=== PATIENT | female | born 1955 | race Caucasian/White ===

== ENCOUNTER 2020-08-06 17:30 | Emergency (ER) | payer BC, SELFPAY ==
[2020-08-06 18:32] VITALS: BP 158/86; PULSE 88; RESP 18; TEMP 36.1; O2SAT 100
--- NOTE | 2020-08-06 18:36 | ECG_ITS ---
Measurements Intervals [place] Rate: 78 P: 75 MT: 168 QRS: 41 QRSD: 94 T: 67 QT: 363 QTc: 415 Interpretive Statements SINUS RHYTHM NORMAL ECG Electronically Signed On 08-06-2020 19:35:11 CDT by Jean Paul Salinas D.O.
[2020-08-06 18:51] LABS: Basophils Percent Auto 0.1 % (0.2-1.2); Hematocrit 39.3 % (37.0-47.0); Hemoglobin 13.5 g/dL (12.0-15.0); Immature Granulocyte Absolute 0.03 K/mm3 (0.00-0.031); Immature Granulocyte Percent A 0.4 % (0-0.5); Lymphocytes Percent Auto 3.5 % (18.3-44.2); Mean Corpuscular HGB Conc 34.4 g/dl (32-36); Mean Corpuscular Hemoglobin 31.8 pg (26-34); Mean Corpuscular Volume 92.7 fl (80-100); Mean Platelet Volume 9.1 fl (7.4-10.4); Monocytes Percent Auto 0.5 % (2.6-8.5); Neutrophils Absolute Auto 8.1 K/mm3 (1.3-6.7); Neutrophils Percent Auto 95.5 % (45.5-73.1); Platelet Count Result 284 k/mm3 (150-375); Red Blood Count 4.24 M/mm3 (4.2-5.4); Red Cell Distribution Width 12.6 % (11.5-14.5); White Blood Count 8.5 K/mm3 (4.5-10.0)
[2020-08-06 19:10] LABS: INR 0.9; Prothrombin Time 12.3 Seconds (11.1-14.7)
[2020-08-06 19:11] LABS: Partial Thromboplastin Time 25.9 SECONDS (22.3-36.8)
[2020-08-06 19:12] LABS: Anion Gap 10 mmol/L (8-16); Blood Urea Nitrogen 23 mg/dL (7-17); Calcium 9.7 mg/dL (8.4-10.2); Carbon Dioxide 25 mmol/L (22-30); Chloride 105 mmol/L (98-107); Estimated CRCL calculation 70 ml/min; Estimated Glomerular Filt Rate > 60; Glucose 192 mg/dL (65-105); Potassium 4.3 mmol/L (3.4-5.0); Sodium 140 mmol/L (137-145)
[2020-08-06 19:18] LABS: Troponin I < 0.012 ng/mL (0.000-0.034)
--- NOTE | 2020-08-06 20:59 | ED.GENADULT ---
HPI - General Adult General Chief complaint: Chest Pain Stated complaint: Low back pain/Low abd cramps Time Seen by Provider: 08/06/20 20:58 Source: patient Mode of arrival: ambulatory Limitations: no limitations History of Present Illness HPI narrative: Here for evaluation of chest pain has been ongoing for several months, followed by pulmonology, cardiology, GI specialist. This episode started about 4 days ago and is midsternal. She has had a cardiac cath in the last 18 months that was negative, she has had an upper GI that was negative, and she takes albuterol periodically for shortness of breath. She does take naproxen and Tylenol once a day as recommended by her previous hospitalization. She was seen today in urgent care and diagnosed with costochondritis, given Solu-Medrol injection and ordered on Symbicort and prednisone. She was also recently on a prescription anti-inflammatory for shoulder pain. The pain does not radiate. She also complains of chronic shortness of breath. CXR at urgent care was normal and she has had a normal PFT> Onset (ago): day(s) Radiation: non-radiation Severity: moderate Quality: burning Pain Consistency: constant Relieving factors: none Treatments prior to arrival: NSAID Related Data Allergies Allergy/AdvReac Type Severity Reaction Status Date / Time No Known Allergies Allergy Mild Unverified 11/08/09 23:56 Review of Systems Review of Systems: All systems reviewed & are unremarkable except as noted in HPI and below [facility] Social History Social History (Updated 08/06/20 @ 23:18 by Patricia Melgar PA-C) Smoking status: Never smoker Alcohol intake: current Alcohol use details: occasional Substance use: never Living arrangements: alone Occupation/Education: occupation Gender identity (if verbalized by the patient): Female Exam Const: General: no acute distress and alert Orientation/consciousness: patient oriented x3 HENMT: Head: normal to inspection Eyes: Pupils: Equal, round and reactive pupils present Chest: Chest palpation & inspection: normal inspection of the chest and tenderness costochondral junction (to firm palpation) Resp: Effort & Inspection: normal respiratory effort Auscultation: clear to auscultation bilaterally Cardio: Rate: regular rate Rhythm: regular rhythm GI: GI Palp: Yes Soft to palpation Skin: General skin exam: normal color Rashes: no rashes Extrem: General: normal to inspection Psych: Mental Status: mental status grossly normal Course Course Emergency Course: Discussed multiple possiblilities for pain. Will try GI cocktail . Pain is resolved after cocktail. Recommend mylanta at bedtime. Vital Signs Vital signs: Vital Signs Temperature 36.1 C L 08/06/20 18:32 Pulse Rate 88 08/06/20 18:32 Respiratory Rate 18 08/06/20 18:32 Blood Pressure 158/86 H 08/06/20 18:32 Pulse Oximetry 100 08/06/20 18:32 Temperature 36.1 C L 08/06/20 18:32 Pulse Rate 88 08/06/20 18:32 Respiratory Rate 18 08/06/20 18:32 Blood Pressure 158/86 H 08/06/20 18:32 Pulse Oximetry 100 08/06/20 18:32 Medical Decision Making Vital Signs Vital Signs: Vital Signs Temperature 36.1 C L 08/06/20 18:32 Pulse Rate 88 08/06/20 18:32 Respiratory Rate 18 08/06/20 18:32 Blood Pressure 158/86 H 08/06/20 18:32 Pulse Oximetry 100 08/06/20 18:32 Temperature 36.1 C L 08/06/20 18:32 Pulse Rate 88 08/06/20 18:32 Respiratory Rate 18 08/06/20 18:32 Blood Pressure 158/86 H 08/06/20 18:32 Pulse Oximetry 100 08/06/20 18:32 Lab Data Lab results reviewed: Yes I reviewed the patient's lab results. Result diagrams: 08/06/20 18:42 08/06/20 18:42 Labs: Lab Results 08/06/20 08/06/20 08/06/20 Range/Units 18:42 18:42 18:42 WBC 8.5 (4.5-10.0) K/mm3 RBC 4.24 (4.2-5.4) M/mm3 Hgb 13.5 (12.0-15.0) g/dL Hct 39.3 (37.0-47.0) % MCV 92.7 (80-100) fl MCH 31
[2020-08-06 21:04] VITALS: PULSE 78; O2SAT 97
[2020-08-06] MEDS: SODIUM CHLORIDE 0.9% IV 1,000 ML 999 ML IV CONT (21:44)
[2020-08-06 22:05] LABS: Troponin I < 0.012 ng/mL (0.000-0.034)
[2020-08-06 22:15] VITALS: BP 163/85; PULSE 72; RESP 16; O2SAT 96
[2020-08-06] MEDS: BELLADONNA ALK/PHENOB ELIX 10 ML, MAG HYDROX/ALUMINUM HYD/SIMETH 30 ML, LIDOCAINE HCL 2... PO (22:27)
[2020-08-06 23:42] VITALS: BP 139/78; PULSE 77; RESP 18; TEMP 37.1; O2SAT 97
== END 2020-08-06 23:43 | disposition home or self-care (01) ==
PROVIDERS: Emergency Medicine; Emergency Provider Emergency Medicine; PCP Internal Medicine
DX: K21.9 Gastro-esophageal reflux disease without esophagitis (principal); R07.2 Precordial pain
CPT/HCPCS: 36415; 80048; 84484; 85025; 85610; 85730; 93005; 96360; 99284; A9270; J7030

== ENCOUNTER 2021-06-13 11:25 | Emergency (ER) | payer BC, SELFPAY ==
--- NOTE | ~2021-06-13 | XR_ITS ---
EXAMINATION: XR chest 2V DATE: 06/13/2021 12:19 INDICATION: Tachycardia. Lightheadedness. TECHNIQUE: PA and lateral views of the chest were obtained. COMPARISON: Chest radiograph dated 10/04/2010 FINDINGS: Mild biapical pleural-parenchymal scarring. Small calcified nodule at the left lung base consistent w ith old granulomatous disease. Mild linear discoid atelectasis at the left costophrenic angle. No oth er airspace opacities, pulmonary edema, pleural effusion or pneumothorax. The cardiomediastinal silho uette is normal. Moderate thoracic spondylosis. IMPRESSION: 1. No acute cardiopulmonary disease. Reviewed, dictated and finalized at location A.
--- NOTE | ~2021-06-13 | CT_ITS ---
EXAMINATION: CTA chest PE protocol DATE: 06/13/2021 13:10 INDICATION: Shortness of breath. Elevated d-dimer. TECHNIQUE: Computed tomography (CT) pulmonary angiogram of the chest was performed with 100 mL Omnipa que-350 intravenous contrast. Additional 3D reconstructions utilizing coronal maximum intensity proje ction (MIP) were performed. Automated exposure control and iterative reconstruction technique were em ployed. The dose-length product was 304.01 mGy-cm. COMPARISON: None FINDINGS: Excellent contrast opacification of the pulmonary arteries. There is mild streak artifact from dense contrast in the superior vena cava and right atrium. Minimal respiratory motion which does not signif icantly limit evaluation. There appears be a single central pulmonary arterial filling defect suspici ous for pulmonary embolism within the superior segmental lingular pulmonary artery. No other pulmonar y emboli identified. Minimal atelectasis at the posterior sulci of the bilateral lower lobes. No pneu monia, pulmonary infarcts, pulmonary edema, pleural effusion or pneumothorax. Heart size is normal. N o leftward bowing of the ventricular septum to suggest right heart strain. Thoracic aorta and central pulmonary arteries are normal in caliber. No aortic dissection. No pathologically enlarged thoracic lymphadenopathy. Visualized upper abdomen is unremarkable. Moderate thoracic spondylosis. IMPRESSION: 1. Single pulmonary embolism within the superior segmental pulmonary artery of the lingula. Reviewed, dictated and finalized at location A.
[2021-06-13 11:27] VITALS: BP 149/82; PULSE 85; RESP 18; TEMP 36.4; O2SAT 97
--- NOTE | 2021-06-13 11:29 | ECG_ITS ---
Measurements Intervals [place] Rate: 85 P: 66 [place]: 155 QRS: 32 QRSD: 91 T: 45 QT: 355 QTc: 423 Interpretive Statements SINUS RHYTHM NORMAL ECG Electronically Signed On 06-13-2021 12:18:01 CDT by Jean Paul Salinas D.O.
[2021-06-13 11:45] VITALS: PULSE 80
[2021-06-13 11:51] LABS: Basophils Absolute Auto 0.1 K/mm3 (0.0-0.1); Basophils Percent Auto 0.6 % (0.2-1.2); Eosinophils Absolute Auto 0.2 K/mm3 (0-0.3); Eosinophils Percent Auto 2.3 % (0-4.4); Hematocrit 43.7 % (37.0-47.0); Hemoglobin 14.8 g/dL (12.0-15.0); Immature Granulocyte Absolute 0.02 K/mm3 (0.00-0.031); Immature Granulocyte Percent A 0.2 % (0-0.5); Lymphocytes Absolute Auto 1.33 K/mm3 (0.9-3.2); Lymphocytes Percent Auto 15.2 % (18.3-44.2); Mean Corpuscular HGB Conc 33.9 g/dl (32-36); Mean Corpuscular Volume 91.6 fl (80-100); Mean Platelet Volume 9.1 fl (7.4-10.4); Monocytes Absolute Auto 0.6 K/mm3 (0.1-0.6); Monocytes Percent Auto 7.3 % (2.6-8.5); Neutrophils Absolute Auto 6.5 K/mm3 (1.3-6.7); Neutrophils Percent Auto 74.4 % (45.5-73.1); Platelet Count Result 302 k/mm3 (150-375); Red Blood Count 4.77 M/mm3 (4.2-5.4); Red Cell Distribution Width 11.9 % (11.5-14.5); White Blood Count 8.7 K/mm3 (4.5-10.0)
[2021-06-13 12:00] LABS: Anion Gap 6 mmol/L (8-16); Blood Urea Nitrogen 20 mg/dL (7-17); Calcium 9.9 mg/dL (8.4-10.2); Carbon Dioxide 28 mmol/L (22-30); Chloride 104 mmol/L (98-107); Estimated CRCL calculation 55 ml/min; Estimated Glomerular Filt Rate > 60; Glucose 103 mg/dL (65-110); Potassium 4.2 mmol/L (3.4-5.0); Sodium 138 mmol/L (137-145)
[2021-06-13 12:40] VITALS: BP 144/84; PULSE 81
[2021-06-13 12:41] VITALS: BP 131/84; PULSE 79
--- NOTE | 2021-06-13 12:42 | ED.DIZZY ---
HPI - Dizziness General Chief Complaint: Syncope Stated Complaint: feel like passing out Time Seen by Provider: 06/13/21 12:02 Source: patient and RN notes reviewed Mode of arrival: ambulatory Limitations: no limitations History of Present Illness HPI Narrative: This is a 65 year old female with history of asthma who presents for evaluation of lightheadedness. She reports intermittent episodes of lightheadedness for 2 weeks. She reports episodes in which she will become lightheaded and diaphoretic. These episodes last seconds. She denies associated chest pain, sob, nausea, vomiting, headache, palpitations. She states she was standing in [place] when she felt lightheaded but it passed after a few seconds while she was standing up. She also notes she was feeding her animals when she became diaphoretic. She checked her vitals when she returned to house and she noticed her heart rate was in 120-130s. She also reports bilateral shoulder pain that she has had for while due to her rotator cuff injuries. 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 MD elicited complaint: lightheadedness Onset (ago): week(s) (2) Related Data Allergies Allergy/AdvReac Type Severity Reaction Status Date / Time No Known Allergies Allergy Mild Verified 06/13/21 11:46 Review of Systems Review of Systems: All systems reviewed & are unremarkable except as noted in HPI and below Constitutional: Constitutional: Denies chills, Reports fatigue and Denies fever(s) ENT: Reports dizziness and Denies sore throat Cardiovascular: Cardiovascular: Denies chest pain Respiratory: Respiratory: Denies chest congestion, Reports cough, Reports dyspnea (chronic) and Denies wheezing Gastrointestinal: Gastrointestinal: Denies abdominal pain, Denies diarrhea, Denies nausea and Denies vomiting Musculoskeletal: Musculoskeletal: Reports arthralgias (shoulder) Neurologic: Denies headache(s), Denies focal weakness and Denies numbness [facility] Past Medical History Medical History (Updated 06/14/21 @ 00:00 by Aneta Riley) Asthma Surgical History Surgical History (Updated 06/13/21 @ 12:44 by Janeen Woods MD) History of breast biopsy Social History Social History (Updated 08/06/20 @ 23:18 by Patricia Melgar PA-C) Smoking status: Never smoker Alcohol intake: current Alcohol use details: occasional Substance use: never Gender identity (if verbalized by the patient): Female Exam Const: General: no acute distress and alert Orientation/consciousness: patient oriented x3 HENMT: Head: normocephalic and atraumatic Face and sinus: face symmetric Eyes: Pupils: Equal, round and reactive pupils present EOM: EOMs intact bilaterally Resp: Effort & Inspection: normal respiratory effort and no retractions Auscultation: clear to auscultation bilaterally Cardio: Rate: regular rate Rhythm: regular rhythm Heart sounds: no murmurs GI: GI Palp: Yes Soft to palpation, No Tenderness to palpation present (GI) and No Guarding due to palpation present (GI) Auscultation: normal bowel sounds Skin: General skin exam: normal color Rashes: no rashes Neuro: General: patient oriented x3, moves all extremities and CN's II-XI intact bilaterally Gait exam (Neuro): Normal gait present Extrem: General: no pedal edema Psych: Mental Status: mental status grossly normal Affect: normal affect Course Reevaluation(s) Reevaluation #1: I spoke with MD general operations agent for Dr. Salgado. I discussed patient case with small PE with normal vitals . Patient is very low risk on PESI. She is agreeable to outpatient treatment. Follow up with Dr. Salgado this week. I discussed with patient CT finding and my plan for discharge. She denies any questions or concerns. Date: 06/13/21 Time: 14:35 Vital Signs Vital signs: Vital Signs Temperature 97.6 F 06/13/21 11:27 Pulse Rate 85 06/13/21 11:27 Respiratory Rate 18 06/13/21 11:27 Blood Pressure 14
[2021-06-13 12:44] VITALS: BP 137/81; PULSE 94
[2021-06-13] MEDS: SODIUM CHLORIDE 0.9% IV 1,000 ML 999 ML IV CONT (12:46)
[2021-06-13 12:47] LABS: INR 0.9; Prothrombin Time 12.1 Seconds (11.1-14.7)
[2021-06-13 12:48] LABS: Alanine Aminotransferase 48 U/L (4-35); Albumin Level 4.5 g/dL (3.5-5.1); Alkaline Phosphatase 94 U/L (38-126); Aspartate Amino Transferase 47 U/L (14-36); Bilirubin,Total 0.7 mg/dL (0.2-1.3); Magnesium 1.8 mg/dL (1.6-2.3)
[2021-06-13 12:48] LABS: Add Urine Microscopic? YES; Appearance Urine Clear (Clear); Bilirubin Urine Negative (Negative); Blood Urine 1+ (Negative); Color Urine Yellow (Yellow); Glucose Urine UA Negative (Negative); Ketones Urine Negative (Negative); Leukocyte Esterase Ur Negative LEU/UL (Negative); Mucus Urine Rare /lpf; Nitrate Urine Negative (Negative); Protein Urine Negative (Negative); Specific Grav Ur 1.024 (1.001-1.035); Squamous Epithelial Cell Urine Occasional /hpf (Few); Urobilinogen Urine Negative mg/dL (<2.0); WBC Urine 0-3 /hpf
[2021-06-13 12:50] LABS: D Dimer 0.91 ug/mL (<0.48)
[2021-06-13 13:00] LABS: Troponin I < 0.012 ng/mL (0.000-0.034)
[2021-06-13] MEDS: RIVAROXABAN 15 MG TABLET PO (14:20)
[2021-06-13 15:02] VITALS: BP 154/87; PULSE 78; RESP 17; O2SAT 99
== END 2021-06-13 15:05 | disposition home or self-care (01) ==
PROVIDERS: Emergency Medicine; Emergency Provider General Practice; PCP Internal Medicine
DX: I26.99 Other pulmonary embolism without acute cor pulmonale (principal); J45.909 Unspecified asthma, uncomplicated
CPT/HCPCS: 36415; 71046; 71275; 80048; 80076; 81001; 83735; 84484; 85025; 85380; 85610; 85730; 93005; 96360; 99284; A9270; J7030; Q9967

== ENCOUNTER 2021-06-15 18:41 | Emergency (ER) | payer BC, SELFPAY ==
--- NOTE | ~2021-06-15 | CT_ITS ---
EXAMINATION: CTA chest PE protocol DATE: 06/16/2021 02:16 INDICATION: Chest pain. TECHNIQUE: Computed tomography angiography (CTA) of the chest was performed with 100 mL Omnipaque-350 intravenous contrast timed to evaluate the pulmonary arteries. Coronal maximum intensity projection 3D-reconstructions were created by the technologist. Automated exposure control and iterative reconst ruction technique were employed. The dose-length product was 300.33 mGy-cm. COMPARISON: Chest CT 06/13/21 FINDINGS: There is mild scarring at the lung apices. There is mild scarring in paraspinal right lower lobe. No pleural effusion. The heart size is normal. No pericardial effusion. There is no pulmonary embolus. There are old healed right rib fractures. There is moderate thoracic spondylosis. There is m ild chronic height loss of multiple vertebral bodies. IMPRESSION: 1. No pulmonary embolus. Reviewed, dictated and finalized at location A. IMPRESSION: 1. No pulmonary embolus.
--- NOTE | ~2021-06-15 | XR_ITS ---
EXAMINATION: XR chest 2V 06/15/2021 19:07 INDICATION: Generalized chest pain PROCEDURE: PA and lateral views of the chest COMPARISON: Comparison to multiple prior studies sequentially, with oldest reviewed study dated 11/06. FINDINGS: The lungs are clear. The lungs are hyperinflated which is consistent with, but not diagnost ic of chronic obstructive pulmonary disease. The cardiomediastinal silhouette is within normal limits . There are no pleural effusions. There is no pneumothorax suspected. IMPRESSION: 1: NO ACUTE CARDIOPULMONARY DISEASE. Reviewed, dictated and finalized at location A.
[2021-06-15 18:44] VITALS: BP 141/91; PULSE 107; RESP 14; TEMP 36.6; O2SAT 98
--- NOTE | 2021-06-15 18:44 | ECG_ITS ---
Measurements Intervals [place] Rate: 106 P: 68 [place]: 156 QRS: 36 QRSD: 92 T: 61 QT: 333 QTc: 443 Interpretive Statements SINUS TACHYCARDIA POSSIBLE LEFT ATRIAL ENLARGEMENT DELAYED PRECORDIAL R/S TRANSITION BORDERLINE ST-T WAVE ABNORMALITY- HIGH LATERAL LEADS BASELINE ARTIFACT- III, V3 ABNORMAL ECG Electronically Signed On 06-15-2021 20:39:03 CDT by Jean Paul Salinas D.O.
[2021-06-15 19:20] LABS: Anion Gap 10 mmol/L (8-16); Blood Urea Nitrogen 17 mg/dL (7-17); Carbon Dioxide 23 mmol/L (22-30); Chloride 108 mmol/L (98-107); Estimated CRCL calculation 55 ml/min; Estimated Glomerular Filt Rate > 60; Glucose 160 mg/dL (65-110); Potassium 3.7 mmol/L (3.4-5.0); Sodium 141 mmol/L (137-145)
[2021-06-15 19:25] LABS: Basophils Percent Auto 0.4 % (0.2-1.2); Eosinophils Absolute Auto 0.3 K/mm3 (0-0.3); Eosinophils Percent Auto 4.2 % (0-4.4); Hematocrit 42.3 % (37.0-47.0); Hemoglobin 14.5 g/dL (12.0-15.0); Immature Granulocyte Absolute 0.02 K/mm3 (0.00-0.031); Immature Granulocyte Percent A 0.3 % (0-0.5); Lymphocytes Absolute Auto 1.69 K/mm3 (0.9-3.2); Lymphocytes Percent Auto 22.4 % (18.3-44.2); Mean Corpuscular HGB Conc 34.3 g/dl (32-36); Mean Corpuscular Hemoglobin 31.5 pg (26-34); Mean Platelet Volume 9.3 fl (7.4-10.4); Monocytes Absolute Auto 0.7 K/mm3 (0.1-0.6); Neutrophils Absolute Auto 4.8 K/mm3 (1.3-6.7); Neutrophils Percent Auto 63.7 % (45.5-73.1); Platelet Count Result 316 k/mm3 (150-375); Red Cell Distribution Width 11.9 % (11.5-14.5); White Blood Count 7.6 K/mm3 (4.5-10.0)
[2021-06-15 19:29] LABS: INR 2.6; Prothrombin Time 27.2 Seconds (11.1-14.7)
[2021-06-15 19:30] LABS: Partial Thromboplastin Time 47.2 SECONDS (22.3-36.8)
[2021-06-15 19:32] LABS: Troponin I < 0.012 ng/mL (0.000-0.034)
[2021-06-15 20:54] VITALS: BP 145/78; PULSE 78; TEMP 36.5; O2SAT 96
[2021-06-15 23:20] LABS: Troponin I < 0.012 ng/mL (0.000-0.034)
[2021-06-16] VITALS (9 sets, daily range): BP systolic 132–154; BP diastolic 75–94; PULSE 75–89; RESP 14–16; TEMP 36.4; O2SAT 96–100
[2021-06-16 01:29] LABS: Troponin I < 0.012 ng/mL (0.000-0.034)
--- NOTE | 2021-06-16 01:35 | ED.GENADULT ---
HPI - General Adult General Chief complaint: Shortness of Breath/Dyspnea <Ramandeep Hernández MD - Last Filed: 06/17/21 11:27> Stated complaint: sob, chest pain, recent pe <Ramandeep Hernández MD - Last Filed: 06/17/21 11:27> Time Seen by Provider: 06/15/21 23:58 <Ramandeep Hernández MD - Last Filed: 06/17/21 11:27> Source: patient <Ramandeep Hernández MD - Last Filed: 06/17/21 11:27> History of Present Illness HPI narrative: Patient is 65 y/o female complaining of midsternal chest pain starting 7-8 hours ago. She describes her pain as pressure and rates it as 7/10. There is no pain radiation. There is no alleviating or exacerbating factor. She has some intermittent SOB. She has no cough or fever. Of note, she was recently diagnosed with PE and started on Xarelto. <Ramandeep Hernández MD - Last Filed: 06/17/21 11:27> Related Data Allergies/adverse reactions: Allergies Allergy/AdvReac Type Severity Reaction Status Date / Time No Known Allergies Allergy Mild Verified 06/16/21 00:14 <Ramandeep Hernández MD - Last Filed: 06/17/21 11:27> Review of Systems Constitutional: Constitutional: Denies chills, Denies fever(s), Denies headache(s) and Denies weakness <Ramandeep Hernández MD - Last Filed: 06/17/21 11:27> Eyes: Eyes: Denies blurry vision <Ramandeep Hernández MD - Last Filed: 06/17/21 11:27> ENT: Denies headache(s) and Denies neck pain <Ramandeep Hernández MD - Last Filed: 06/17/21 11:27> Cardiovascular: Cardiovascular: Reports chest pain and Reports dyspnea <Ramandeep Hernández MD - Last Filed: 06/17/21 11:27> Respiratory: Respiratory: Denies cough and Reports dyspnea <Ramandeep Hernández MD - Last Filed: 06/17/21 11:27> Gastrointestinal: Gastrointestinal: Denies abdominal pain, Denies diarrhea, Denies nausea and Denies vomiting <Ramandeep Hernández MD - Last Filed: 06/17/21 11:27> Genitourinary: Genitourinary: Denies hematuria and Denies dysuria <Ramandeep Hernández MD - Last Filed: 06/17/21 11:27> Musculoskeletal: Musculoskeletal: Denies back pain and Denies neck pain <Ramandeep Hernández MD - Last Filed: 06/17/21 11:27> Neurologic: Denies headache(s) and Denies weakness <Ramandeep Hernández MD - Last Filed: 06/17/21 11:27> COUNT INCLUDES THE [facility] Past Medical History Medical History: Medical History Asthma <Ramandeep Henrández MD - Last Filed: 06/17/21 11:27> Surgical History Surgical History: Surgical History History of breast biopsy <Ramandeep Hernández MD - Last Filed: 06/17/21 11:27> Social History Social History: Social History Smoking status: Never smoker Alcohol intake: current Alcohol use details: occasional Substance use: never Gender identity (if verbalized by the patient): Female <Ramandeep Hernández MD - Last Filed: 06/17/21 11:27> Exam Const: General: no acute distress and well developed <Ramandeep Hernández MD - Last Filed: 06/17/21 11:27> Orientation/consciousness: oriented to person, oriented to place, oriented to time and patient oriented x3 <Ramandeep Hernández MD - Last Filed: 06/17/21 11:27> HENMT: Head: normocephalic <Ramandeep Hernández MD - Last Filed: 06/17/21 11:27> Ears: external ears normal <Ramandeep Hernández MD - Last Filed: 06/17/21 11:27> General nose exam: Normal external nose present <Ramandeep Hernández MD - Last Filed: 06/17/21 11:27> Eyes: General: appearance normal, both eyes and all related structures <Ramandeep Hernández MD - Last Filed: 06/17/21 11:27> Conjunctivae: conjunctivae normal <Ramandeep Hernández MD - Last Filed: 06/17/21 11:27> Neck: Neck: normal visual inspection and full ROM <Ramandeep Hernández MD - Last Filed: 06/17/21 11:27> Chest: Chest palpation & inspection: normal inspection of the chest and no tenderness <Ramandeep Hernández MD - Last Filed: 06/17/21 11:27> Resp: Effort & Inspection: normal respiratory effort <Ramandeep Hernández MD - Last Filed:
== END 2021-06-16 05:16 | disposition home or self-care (01) ==
PROVIDERS: Emergency Medicine; Emergency Provider Emergency Medicine; PCP Internal Medicine
DX: R07.9 Chest pain, unspecified (principal); R06.02 Shortness of breath; R00.0 Tachycardia, unspecified; J45.909 Unspecified asthma, uncomplicated
CPT/HCPCS: 36415; 71046; 71275; 80048; 84484; 85025; 85610; 85730; 93005; 99284; Q9967

== ENCOUNTER 2022-03-16 11:02 | Outpatient (CLI) | payer BC, SELFPAY ==
[2022-03-16 11:29] LABS: Alanine Aminotransferase 28 U/L (6-35); Aspartate Amino Transferase 30 U/L (14-36)
== END 2022-03-16 11:03 | disposition home or self-care (01) ==
LOC: ANHLAB 11:05
PROVIDERS: PCP Internal Medicine; Visit Provider Podiatrist Foot & Ankle Surgery
DX: B35.1 Tinea unguium (principal)
CPT/HCPCS: 36415; 84450; 84460

== ENCOUNTER 2022-08-02 11:29 | Outpatient (CLI) | payer BC, SELFPAY ==
[2022-08-02 11:51] LABS: Alanine Aminotransferase 28 U/L (6-35); Aspartate Amino Transferase 33 U/L (14-36)
== END 2022-08-02 11:30 | disposition home or self-care (01) ==
LOC: ANHLAB 11:31
PROVIDERS: PCP Internal Medicine; Visit Provider Podiatrist Foot & Ankle Surgery
DX: B35.1 Tinea unguium (principal)
CPT/HCPCS: 36415; 84450; 84460

== ENCOUNTER 2022-12-03 08:27 | Emergency (ER) | payer BC, SELFPAY ==
--- NOTE | 2022-12-03 08:31 | ED.URI ---
HPI - URI/Sore Throat General Chief Complaint: Upper Respiratory Infection Stated Complaint: COUGH/NAUSEA/DRY & SCRATCHY THROAT Time Seen by Provider: 12/03/22 08:32 Source: patient, RN notes reviewed and old records reviewed Mode of arrival: ambulatory Limitations: no limitations History of Present Illness HPI Narrative: 67-year-old female who presents to [facility] with complaints of chest tightness with cough, frequent nonproductive cough,wheezing, scratchy throat and also some hoarseness and some nausea since . Patient reports history of asthma and has been using her inhaler and also taking Mucinex. Patient states that she has has increased wheezing especially at night denies any acute dyspnea, reports that she has not been sleeping well and feels terrible. Patient states that she is suppose to go to birthday [place] party today and she is concerned she is contagious, wants COVID test, reports she has been COVID vaccinated, had flu shot and also pneumonia shot this year. Patient denies any known fevers. MD elicited complaint: cough, sore throat, rhinorrhea, nasal congestion and other (wheezing) Pertinent past history: asthma Onset (ago): day(s) (2) Able to tolerate fluids by mouth: Yes Associated symptoms: voice changes, rhinorrhea, nasal congestion, sore throat, cough and nausea Treatments prior to arrival: other (Mucinex and used inhaler) Related Data Home Medications Medication Instructions Recorded Confirmed diclofenac sodium 75 mg mg PO 12/03/22 tablet,delayed release fluticasone furoate 200 inhalation 12/03/22 mcg-vilanterol 25 mcg/dose inhalation powder omeprazole 40 mg capsule,delayed mg 12/03/22 release terbinafine HCl 250 mg tablet mg 12/03/22 Allergies Allergy/AdvReac Type Severity Reaction Status Date / Time No Known Allergies Allergy Mild Verified 12/03/22 08:37 Review of Systems Review of Systems: CONSTITUTIONAL: Denies malaise, chills, sweats, or fever. EYES: Denies visual changes, redness, or discharge. ENT: Reports rhinorrhea, congestion, no sinus pain,no otalgia and sore throat. CARDIOVASCULAR: Reports chest tightness with cough,no palpitations, or edema. RESPIRATORY: Reports cough.? Denies acute dyspnea. GASTROINTESTINAL: Denies abdominal pain,states some nausea,no vomiting,or diarrhea SKIN: Denies rash or itching. MUSCULOSKELETAL: Denies myalgia. NEUROLOGIC: Denies headache. All systems reviewed & are unremarkable except as noted in HPI and below PMFSH Past Medical History Medical History (Updated 12/03/22 @ 09:19 by Nani Resendiz NP) Asthma GERD (gastroesophageal reflux disease) Surgical History Surgical History (Updated 12/03/22 @ 09:20 by Nani Resendiz NP) History of breast biopsy History of repair of rotator cuff bilateral Social History Social History Smoking status: Never smoker Alcohol intake: current Alcohol use details: occasional Substance use: never Living arrangements: alone Occupation/Education: occupation Gender identity (if verbalized by the patient): Female Comments At time of signature, agree with nursing past medical, surgical, social and family history. There is no relevant family history pertinent to the presenting complaint Exam Narrative: GENERAL: Well-appearing, well-nourished, and in no acute distress. HEAD: Normocephalic EYES: PERRLA, conjunctivae clear ENT: Nares clear, turbinates edematous and erythematous, clear discharge. Mucous membranes moist. TM pearly valenzuela with dull light reflex bilaterally; no tragal tenderness. Oropharynx erythematous without lesions. Tonsils not enlarged and without exudate, no drooling, no hoarseness, no trismus, uvula midline. NECK: Supple. No lymphadenopathy CHEST: Clear to auscultation, breath sounds equal. No wheezing, rhonchi, rales, or stridor. No respiratory distress, speaks in full sentences. No tachy
[2022-12-03 08:37] VITALS: BP 140/96; PULSE 95; RESP 16; TEMP 36.5; O2SAT 99
[2022-12-03 08:39] VITALS: BP 140/96; PULSE 95; RESP 16; TEMP 36.5; O2SAT 99
== END 2022-12-03 09:17 | disposition home or self-care (01) ==
PROVIDERS: Emergency Provider Registered Nurse; PCP Internal Medicine
DX: J06.9 Acute upper respiratory infection, unspecified (principal); Z20.822 Contact with and (suspected) exposure to COVID-19; K21.9 Gastro-esophageal reflux disease without esophagitis
CPT/HCPCS: 87426; 99213; C9803; G0463

== ENCOUNTER 2022-12-10 18:03 | Emergency (ER) | payer BC, SELFPAY ==
--- NOTE | ~2022-12-10 | XR_ITS ---
EXAMINATION: XR chest 2V DATE: 12/10/2022 18:30 INDICATION: Cough and chest pain TECHNIQUE: PA and lateral views of the chest are obtained. COMPARISON: 06/15/2021 FINDINGS: The lungs are free of acute opacities. No pleural effusion or pneumothorax. The cardiomedia stinal silhouette is normal. There is moderate thoracic spondylosis. Healed right-sided rib fractures are noted. IMPRESSION: 1. No acute cardiopulmonary abnormality. Reviewed, dictated and finalized at location F. [employer]ICAL EQUIPMENT TECHNICIAN
--- NOTE | 2022-12-10 18:06 | ED.URI ---
HPI - URI/Sore Throat General Chief Complaint: Upper Respiratory Infection Stated Complaint: COUGH/CHEST PRESSURE Time Seen by Provider: 12/10/22 18:14 Source: patient and RN notes reviewed Mode of arrival: ambulatory Limitations: no limitations History of Present Illness HPI Narrative: 67-year-old female presents concern for ongoing cough, chest congestion, chest pressure with coughing. She reports she was seen in this clinic about a week ago and was given the Z-Mark, steroids and Tessalon Perles. She reports she has seen her doctor since then and he had her continue on the medications. She reports she began to feel a bit better yesterday, she feels worse today and she feels generally ill, chills, achiness. She denies any nasal congestion, rhinorrhea, sore throat, fever. MD elicited complaint: cough Related Data Home Medications Medication Instructions Recorded Confirmed omeprazole 40 mg capsule,delayed 40 mg PO DAILY 12/03/22 12/10/22 release terbinafine HCl 250 mg tablet 250 mg PO DAILY 12/03/22 12/10/22 estradiol 0.01% (0.1 mg/gram) 1 g vaginal DIRECTED 12/10/22 12/10/22 vaginal cream fluticasone furoate 200 1 inh inhalation DAILY 12/10/22 12/10/22 mcg-vilanterol 25 mcg/dose inhalation powder lisinopril 5 mg tablet 5 mg PO DAILY 12/10/22 12/10/22 Allergies Allergy/AdvReac Type Severity Reaction Status Date / Time No Known Allergies Allergy Mild Verified 12/10/22 18:12 Review of Systems Review of Systems: CONSTITUTIONAL: Reports malaise, chills. Denies fever. EYES: Denies visual changes, redness, or discharge. ENT: Reports rhinorrhea, congestion, sinus pain, otalgia and sore throat. CARDIOVASCULAR: Denies chest pain, palpitations, or edema. RESPIRATORY: Reports dry cough, chest congestion, chest pressure. Denies dyspnea. GASTROINTESTINAL: Denies abdominal pain, nausea, vomiting, diarrhea SKIN: Denies rash or itching. MUSCULOSKELETAL: Reports myalgia. NEUROLOGIC: Denies headache. All systems reviewed & are unremarkable except as noted in HPI and below PMFSH Past Medical History Medical History (Updated 12/10/22 @ 19:07 by Richelle Hughes NP) Asthma GERD (gastroesophageal reflux disease) Surgical History Surgical History (Updated 12/03/22 @ 09:20 by Nani Resendiz NP) History of breast biopsy History of repair of rotator cuff bilateral Social History Social History Smoking status: Never smoker Alcohol intake: current Alcohol use details: occasional Substance use: never Living arrangements: alone Occupation/Education: occupation Gender identity (if verbalized by the patient): Female Comments At time of signature, agree with nursing past medical, surgical, social and family history. There is no relevant family history pertinent to the presenting complaint Exam Narrative: GENERAL: Well-appearing, well-nourished, and in no acute distress. HEAD: Normocephalic EYES: PERRLA, conjunctivae clear ENT: Nares clear. Mucous membranes moist. TM pearly valenzuela with dull light reflex bilaterally; no tragal tenderness. Oropharynx not erythematous without lesions. Tonsils not enlarged and without exudate, no drooling, no hoarseness, no trismus, uvula midline. NECK: Supple. No lymphadenopathy CHEST: Crackles noted in the bilateral bases, otherwise clear to auscultation, breath sounds equal. No wheezing, rales, or stridor. No respiratory distress, speaks in full sentences. HEART: Regular rate and rhythm. No murmur heard. SKIN: Warm, dry, no rash. NEURO: Alert and oriented x3. PSYCH: Normal mood and affect Course Course Emergency Course: Patient was diagnosed with pulmonary embolism in June of 2021 at [facility]. Patient reports she was started on Xarelto. She followed up with her physician who said they did not see any sign of a pulmonary embolism, she has stopped taking Xarelto. She reports her symptoms today
[2022-12-10 18:09] VITALS: BP 145/84; PULSE 115; RESP 16; TEMP 36.9; O2SAT 96
[2022-12-10] MEDS: ALBUTEROL SULFATE NEB 2.5 MG/3 ML INH INHALATION (18:35)
[2022-12-10] MEDS: IPRATROPIUM BR 0.02% INH SOLN 0.5 MG/2.5 ML VIAL INHALATION (18:35)
[2022-12-10 19:10] VITALS: PULSE 90; O2SAT 97
== END 2022-12-10 19:10 | disposition home or self-care (01) ==
PROVIDERS: Emergency Provider Nurse Practitioner; PCP Internal Medicine
DX: R05.9 Cough, unspecified (principal); J45.909 Unspecified asthma, uncomplicated; K21.9 Gastro-esophageal reflux disease without esophagitis
CPT/HCPCS: 71046; 94640; 99214; G0463

== ENCOUNTER 2022-12-17 16:49 | Emergency (ER) | payer BC, SELFPAY ==
--- NOTE | 2022-12-17 16:51 | ED.URI ---
HPI - URI/Sore Throat General Chief Complaint: Upper Respiratory Infection Stated Complaint: chest tightness, cough, scratchy throat Time Seen by Provider: 12/17/22 16:51 Source: patient and RN notes reviewed History of Present Illness HPI Narrative: Patient 67-year-old female presents to urgent care with complaints of cough, chest tightness, shortness of breath, sore throat. Patient states that symptoms started mid November and she has been seen at our facility on both December 03 and December 10. Patient has been given 2 rounds of steroids, azithromycin and Levaquin as well as Tessalon Perles between our facility and her provider. Patient states that she seems to get better and then worse again every Monday. Patient states that she has been using her albuterol inhaler and Breo as needed. Patient does not have a nebulizer machine at home. Denies any recent fevers. Patient is also requesting a note for her work to not work on the COVID floor at the [facility] [employer]. No other acute complaints. No acute distress noted. Patient aware of the plan of care. Some parts of this dictation were generated by voice recognition software and may contain typographical and/or grammatical inaccuracies. Related Data Home Medications Medication Instructions Recorded Confirmed omeprazole 40 mg capsule,delayed 40 mg PO DAILY 12/03/22 12/17/22 release terbinafine HCl 250 mg tablet 250 mg PO DAILY 12/03/22 12/17/22 estradiol 0.01% (0.1 mg/gram) 1 g vaginal DIRECTED 12/10/22 12/17/22 vaginal cream fluticasone furoate 200 1 inh inhalation DAILY 12/10/22 12/17/22 mcg-vilanterol 25 mcg/dose inhalation powder lisinopril 5 mg tablet 5 mg PO DAILY 12/10/22 12/17/22 Allergies Allergy/AdvReac Type Severity Reaction Status Date / Time No Known Allergies Allergy Mild Verified 12/17/22 17:06 Review of Systems Review of Systems: CONSTITUTIONAL: Denies fever, chills, or sweats. EYES: Denies visual changes, redness, or discharge. ENT: Denies rhinorrhea, congestion, otalgia. Reports a sore throat CARDIOVASCULAR: Denies chest pain, palpitations, or edema. RESPIRATORY: Reports a persistent cough with intermittent dyspnea and chest tightness GASTROINTESTINAL: Denies abdominal pain, nausea, vomiting, or diarrhea. GENITOURINARY: Denies dysuria or hematuria. SKIN: Denies rash or itching. MUSCULOSKELETAL: Denies back pain, joint pain, or myalgia. NEUROLOGIC: Denies headache, numbness, or weakness. All other systems reviewed are negative, except as documented in HPI. [facility] Past Medical History Medical History (Updated 12/17/22 @ 17:57 by JESUS Loza) Asthma GERD (gastroesophageal reflux disease) Surgical History Surgical History (Updated 12/03/22 @ 09:20 by Nani Resendiz NP) History of breast biopsy History of repair of rotator cuff bilateral Social History Social History Smoking status: Never smoker Alcohol intake: current Alcohol use details: occasional Substance use: never Living arrangements: alone Occupation/Education: occupation Gender identity (if verbalized by the patient): Female Comments At the time of my signature, I reviewed and agree with the nursing past medical, surgical, social, and family history. There is no relevant family history pertinent to the patient complaint. Exam Narrative: GENERAL: This is a well-nourished, well-developed patient, in no apparent distress. HEAD: normocephalic, atraumatic. EYES: PERRL. Sclera clear/white. Vision is grossly intact. EARS: External ears normal, auditory canals clear and without drainage, TMs normal without perforation. Hearing grossly intact. NOSE: External nose normal with no obvious nasal discharge, nares without redness, no rhinorrhea. THROAT: Mucous membranes moist, mild erythema to posterior pharynx with mild postnasal drainage NECK: Neck supple, non-tender without lymphadenopathy CAR
[2022-12-17 17:01] VITALS: BP 135/69; PULSE 92; RESP 14; TEMP 36.4; O2SAT 97
== END 2022-12-17 18:07 | disposition home or self-care (01) ==
PROVIDERS: Emergency Provider Nurse Practitioner Family; PCP Internal Medicine
DX: J45.909 Unspecified asthma, uncomplicated (principal); K21.9 Gastro-esophageal reflux disease without esophagitis
CPT/HCPCS: 87081; 87880; 99213; G0463

== ENCOUNTER 2025-06-19 16:49 | Emergency (ER) | payer BC, SELFPAY ==
--- NOTE | 2025-06-19 16:53 | ED.NECK ---
HPI - Neck Pain/Injury General Chief Complaint: Neck Pain/Injury Stated Complaint: NECK/R SHOULDER PAIN Time Seen by Provider: 06/19/25 16:53 Source: patient Mode of arrival: ambulatory Limitations: no limitations History of Present Illness HPI Narrative: Merline is a 69-year-old female patient presenting to the clinic today with complaints of right-sided neck and right shoulder pain x1 day. She reports no known injury or neck manipulation. 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 She has taken/used ibuprofen, Voltaren, Biofreeze, tens unit to treat her symptoms. Pain is sharp and stabbing rating it a 10/10. Any time she moves her right arm she has pain- Pain to the posterior lateral cervical paraspinus muscle and over the trapezius musculature. Related Data Home Medications ?Medication ?Instructions ?Recorded ?Confirmed ?Last Taken ?Type omeprazole 40 mg capsule,delayed 40 mg PO DAILY 12/03/22 06/19/25 Unknown History release terbinafine HCl 250 mg tablet 250 mg PO DAILY 12/03/22 12/17/22 Unknown History estradiol 0.01% (0.1 mg/gram) 1 g vaginal DIRECTED 12/10/22 12/17/22 Unknown History vaginal cream fluticasone furoate 200 1 inh inhalation DAILY 12/10/22 06/19/25 Unknown History mcg-vilanterol 25 mcg/dose inhalation powder lisinopril 5 mg tablet 5 mg PO DAILY 12/10/22 12/17/22 Unknown History Allergies Allergy/AdvReac Type Severity Reaction Status Date / Time No Known Allergies Allergy Mild Verified 06/19/25 17:00 Review of Systems Review of Systems: Pertinent positives per HPI. Patient denies any fever, chills, rash, headache, visual changes, dizziness, cough, runny nose, sore throat, shortness of breath, chest pain, palpitations, nausea, vomiting, diarrhea, constipation, abdominal pain, or any urinary issues. [facility] Past Medical History Medical History GERD (gastroesophageal reflux disease) Asthma Surgical History Surgical History History of repair of rotator cuff bilateral History of breast biopsy Social History Social History Smoking status: Never smoker Alcohol intake: current Alcohol use details: occasional Substance use: never Living arrangements: alone Occupation/Education: occupation Gender identity (if verbalized by the patient): Female Comments At the time of my signature, I reviewed and agree with the nursing past medical, surgical, social, and family history. There is no relevant family history pertinent to the patient complaint. Exam Narrative: General: Well-developed, well nourished, in no apparent distress Head: Normocephalic, atraumatic. Cardio: Regular rate and rhythm, s1 and s2 normal, no murmur appreciated. Resp: Clear to auscultation bilaterally, no rhonchi, rales, wheezing or rubs. Musculoskeletal: No deformity, right posterior lateral paraspinous muscle tender to palpation, tender to palpation over the right trapezius musculature, pain with movement of the right arm over the trapezius musculature, grossly normal range of motion, muscle strength strong and equal, peripheral pulse strong, no edema, no cyanosis, normal gait and station Course Course Emergency Course: Portions of this record may have been created with voice recognition software. Level of Care: Express Care Visit Vital Signs Vital signs: Vital Signs Temperature 36.4 C L 06/19/25 17:00 Pulse Rate 92 06/19/25 17:00 Respiratory Rate 16 06/19/25 17:00 Blood Pressure 145/81 H 06/19/25 17:00 Pulse Oximetry 98 06/19/25 17:00 Temperature 36.4 C L 06/19/25 17:00 Pulse Rate 92 06/19/25 17:00 Respiratory Rate 16 06/19/25 17:00 Blood Pressure 145/81 H 06/19/25 17:00 Pulse Oximetry 98 06/19/25 17:00 Vital signs reviewed MDM - Neck Pain/Injury MDM Narrative Medical decision making narrative: At the time of visit patient is resting comfortably on the exam table. Patient appears to be nontoxic. Complaints of right-sided neck and right shoulder pain x1 day. She reports no known injury or neck manipulation. She has taken/used ibuprofen, Voltaren, Biofreeze, tens unit to treat her symptoms. Pain is sharp and stabbing rating it a 10/10. Any time she moves her right arm she has pain- Pain to the posterior lateral cervical paraspinus muscle and over the trapezius musculature. On exam patient has tenderness to palpation over the posterior lateral cervical spur spinous musculature is and over the right trapezius of pain with movement of the right arm over the trapezius musculature, hand grasp strong and equal, upper muscle strength strong and equal bilaterally Plan: I suspect patient has a cervical/trapezius muscle strain. Prescription for Medrol Dosepak and baclofen was sent to the pharmacy. Supportive measures were discussed with the patient and they voiced understanding discharge instructions and agrees to treatment plan. Return precautions reviewed Differential Diagnosis Differential diagnosis: Likely disc disorder of cervical region, whiplash injury to neck, closed subluxation of cervical spine, fracture of cervical spine without lesion of spinal cord, cervical radiculopathy, vertebral artery dissection, torticollis, cervical spondylosis and strain of neck muscle Discharge Plan Discharge Clinical Impression: Strain of cervical portion of right trapezius muscle Patient Disposition: Home Condition: Stable Instructions: Antibiotic Form, Cervical Strain (ED) Additional Instructions: Take any prescription medication only as prescribe-Medrol Dosepak and baclofen Be mindful of sedation precautions given to you if taking a muscle relaxer. May use heat or ice to the affected area Consider massage or chiropractor adjustment if this was discussed with provider May use blue emu, lidocaine patches, or asper cream to affected area- do not apply heat or ice directly over cream- can cause burn. Complete appropriate neck stretching exercises. Follow up with your PCP in 3-5 days if symptom persist. Patient Language: Hungarian Prescriptions: New methylprednisolone [Medrol (Mark)] 4 mg tablets,dose pack See Rx Instructions PO .COMPLEX Qty: 21 0RF Rx Instructions: orally per package directions baclofen 10 mg tablet 10 mg PO TID PRN (Reason: muscle spasm) 7 Days Qty: 21 0RF No Action omeprazole 40 mg capsule,delayed release(DR/EC) 40 mg PO DAILY terbinafine HCl 250 mg tablet 250 mg PO DAILY lisinopril 5 mg tablet 5 mg PO DAILY estradiol 0.01 % (0.1 mg/gram) cream 1 g VAGINAL DIRECTED fluticasone furoate-vilanterol 200-25 mcg/dose blister with device 1 inh INHALATION DAILY prednisone 10 mg tablet See Rx Instructions .ROUTE .COMPLEX Qty: 30 0RF Rx Instructions: 4 tabs daily for days 1-3, 3 tabs daily for days 4-6, 2 tabs daily for days 7-9, 1 tab daily for days 10-12 Follow-up/Referrals: Jerrod,Ayah Murillo APRN [Primary Care Provider, Unknown] Stand Alone Forms: Work/School Release IP Time of Disposition: 17:06 Quality NIHSS Nursing Documentation ED NIHSS nursing documentation: reviewed/agree
[2025-06-19 17:00] VITALS: BP 145/81; PULSE 92; RESP 16; TEMP 36.4; O2SAT 98
== END 2025-06-19 17:28 | disposition home or self-care (01) ==
PROVIDERS: Emergency Provider Nurse Practitioner Family; PCP Registered Nurse
DX: S16.1XXA Strain of muscle, fascia and tendon at neck level, initial encounter (principal); X58.XXXA Exposure to other specified factors, initial encounter; J45.909 Unspecified asthma, uncomplicated; K21.9 Gastro-esophageal reflux disease without esophagitis
CPT/HCPCS: 99213; G0463

== ENCOUNTER 2025-08-09 13:01 | Emergency (ER) | payer BC, SELFPAY ==
[2025-08-09 13:14] VITALS: BP 127/84; PULSE 116; RESP 16; TEMP 36.8; O2SAT 100
--- NOTE | 2025-08-09 13:25 | ED.URI ---
HPI - URI/Sore Throat General Chief Complaint: Upper Respiratory Infection Stated Complaint: BODY ACHES/COUGH/REFLUX Time Seen by Provider: 08/09/25 13:18 Source: patient and RN notes reviewed Mode of arrival: ambulatory Limitations: no limitations History of Present Illness HPI Narrative: 70-year-old female patient presents today complaining of a body aches, sore throat intermittently x3 days. This morning, she woke up today choking from acid in her throat, due to GERD. This has caused worsening sore throat and now her body aches worsened and she feels like she has the flu. She tried some antacids this morning for the sore throat. Denies shortness of breath, difficulty swallowing. Related Data Home Medications ?Medication ?Instructions ?Recorded ?Confirmed ?Last Taken ?Type omeprazole 40 mg capsule,delayed 40 mg PO DAILY 12/03/22 06/19/25 Unknown History release terbinafine HCl 250 mg tablet 250 mg PO DAILY 12/03/22 12/17/22 Unknown History estradiol 0.01% (0.1 mg/gram) 1 g vaginal DIRECTED 12/10/22 12/17/22 Unknown History vaginal cream fluticasone furoate 200 1 inh inhalation DAILY 12/10/22 06/19/25 Unknown History mcg-vilanterol 25 mcg/dose inhalation powder lisinopril 5 mg tablet 5 mg PO DAILY 12/10/22 12/17/22 Unknown History Allergies Allergy/AdvReac Type Severity Reaction Status Date / Time No Known Allergies Allergy Mild Verified 08/09/25 13:16 [facility] Past Medical History Medical History GERD (gastroesophageal reflux disease) Asthma Surgical History Surgical History History of repair of rotator cuff bilateral History of breast biopsy Social History Social History Smoking status: Never smoker Alcohol intake: current Alcohol use details: occasional Substance use: never Living arrangements: alone Occupation/Education: occupation Gender identity (if verbalized by the patient): Female Comments At time of signature, I have reviewed and agree with nursing past medical, surgical, social and family history unless otherwise noted. Please see nursing chart for further information. There is no relevant family history pertinent to the presenting complaint Exam Narrative: GENERAL: Mildly-appearing, well-nourished, and in no acute distress. HEAD: Normocephalic, atraumatic. EYES: EOMI. No redness or drainage. Conjunctivae normal. ENT: Mucous membranes pink and moist. Nares clear. No rhinorrhea. TMs normal bilaterally. Throat mildly erythematous along the palatine arch without edema or exudate. Uvula midline. NECK: Normal AROM. Supple. No lymphadenopathy. CHEST: No respiratory distress. Clear to auscultation. HEART: Regular rate and rhythm. No murmur appreciated. EXTREMITIES: Normal range of motion. No edema. SKIN: Warm, dry, no rash. Capillary refill normal. Normal skin turgor. NEURO: No focal deficits. Alert and oriented x3. Gait steady. PSYCH: Normal affect. No signs of depression or anxiety. Course Course Level of Care: Express Care Visit Vital Signs Vital signs: Vital Signs Temperature 98.2 F 08/09/25 13:14 Pulse Rate 116 H 08/09/25 13:14 Respiratory Rate 16 08/09/25 13:14 Blood Pressure 127/84 08/09/25 13:14 Pulse Oximetry 100 08/09/25 13:14 Temperature 98.2 F 08/09/25 13:14 Pulse Rate 116 H 08/09/25 13:14 Respiratory Rate 16 08/09/25 13:14 Blood Pressure 127/84 08/09/25 13:14 Pulse Oximetry 100 08/09/25 13:14 Reviewed MDM - URI/Sore Throat MDM Narrative Medical decision making narrative: 70-year-old female patient presents today complaining of a body aches, sore throat intermittently x3 days. This morning, she woke up today choking from acid in her throat, due to GERD. This has caused worsening sore throat and now her body aches worsened and she feels like she has the flu. She tried some antacids this morning for the sore throat. Denies shortness of breath, difficulty swallowing. Upon exam, patient is mildly ill appearing with some mild sore throat without edema or exudate. Remainder of exam is normal. COVID and influenza are negative. Patient declines rapid strep screen. Symptoms likely viral in etiology. Discussed [id number] medication use and duration of illness. No prescription medications indicated at this time. Anticipatory guidance given. Differential Diagnosis Differential diagnosis: Likely upper respiratory infection, otitis media, viral infection, influenza, pharyngitis and other (COVID-19, strep throat) Lab Data Attestation: I reviewed the patient's lab results. Labs: Lab Results 08/09/25 Range/Units 13:29 POC Influenza A Ag Negative (Negative) POC Influenza B Ag Negative (Negative) POC SARS CoV-2 Ag Negative (Negative) Critical Care Time Critical Care Time Critical Care Time: No Discharge Plan Discharge Clinical Impression: Viral syndrome Patient Disposition: Home Condition: Stable Instructions: Viral Syndrome (ED) Additional Instructions: Your COVID-19 and influenza swabs are negative today. Your symptoms are likely due to a viral illness, which is not treated with antibiotics. Virus symptoms can last for up to 7-10days. Take Tylenol or ibuprofen for pain or fever. Rest and stay hydrated. Follow up with your PCP in 7 days if symptoms are not improving. Go to the ER immediately if you develop shortness of breath, difficulty swallowing, or any other concerning symptoms. Patient Language: Swedish Prescriptions: No Action omeprazole 40 mg capsule,delayed release(DR/EC) 40 mg PO DAILY terbinafine HCl 250 mg tablet 250 mg PO DAILY lisinopril 5 mg tablet 5 mg PO DAILY estradiol 0.01 % (0.1 mg/gram) cream 1 g VAGINAL DIRECTED fluticasone furoate-vilanterol 200-25 mcg/dose blister with device 1 inh INHALATION DAILY prednisone 10 mg tablet See Rx Instructions .ROUTE .COMPLEX Qty: 30 0RF Rx Instructions: 4 tabs daily for days 1-3, 3 tabs daily for days 4-6, 2 tabs daily for days 7-9, 1 tab daily for days 10-12 methylprednisolone [Medrol (Mark)] 4 mg tablets,dose pack See Rx Instructions PO .COMPLEX Qty: 21 0RF Rx Instructions: orally per package directions baclofen 10 mg tablet 10 mg PO TID PRN (Reason: muscle spasm) 7 Days Qty: 21 0RF Follow-up/Referrals: Jerrod,Ayah Murillo APRN [Primary Care Provider, Unknown] Stand Alone Forms: Work/School Release IP Time of Disposition: 13:32
[2025-08-09 13:31] LABS: EDCOVIDSCREEN Negative (Negative); EDINFLUASCREEN Negative (Negative); EDINFLUBSCREEN Negative (Negative)
== END 2025-08-09 13:52 | disposition home or self-care (01) ==
PROVIDERS: Emergency Provider Nurse Practitioner; PCP Registered Nurse
DX: B34.9 Viral infection, unspecified (principal); Z20.822 Contact with and (suspected) exposure to COVID-19; J45.909 Unspecified asthma, uncomplicated; K21.9 Gastro-esophageal reflux disease without esophagitis
CPT/HCPCS: 87426; 87804; 99212; G0463